=== PATIENT | female | born 1945 | race Caucasian/White ===

== ENCOUNTER → 2020-06-20 12:36 | Outpatient (CLI) | payer MEDICARE, OTHER, SELFPAY ==
--- NOTE | 2020-06-20 12:45 | ART_ITS ---
Reason For Study: PAD Procedure A bilateral lower extremity continuous wave Doppler with analog waveform analysis,segmental pressures,and ankle brachial indexes without exercise. Left Segmental Pressures Left brachial= 147mmHg. Left posterior tibial artery = 172mmHg. Left dorsalis pedis artery = 160mmHg. Left digit = 131 mmHg. The left dorsalis pedis waveforms are triphasic. The left posterior tibial artery waveforms are triphasic. Right Segmental Pressures Right brachial= 144mmHg. Right posterior tibial artery = 173mmHg. Right dorsalis pedis artery = 173mmHg. Right digit = 141 mmHg. The right dorsalis pedis waveforms are triphasic. The right posterior tibial artery waveforms are triphasic. Indices The right ankle brachial index by the dorsalis pedis is 1.18. The right ankle brachial index by the posterior tibial artery is 1.18. The right digital-brachial index is .96. The left ankle brachial index by the posterior tibial artery is 1.17. The left ankle brachial index by the dorsalis pedis is 1.09. The left digital-brachial index is .89. Interpretation Summary Triphasic Doppler waveforms are noted at ankle level bilaterally. Pulse-volume recordings appear satisfactory at all levels bilaterally, including low-thigh, calf, ankle, and digital levels. Resting ankle-brachial indices are normal bilaterally. Digital-brachial indices are normal bilaterally. There is no evidence of significant arterial occlusive disease in the lower extremities bilaterally. Ordering Physician: Edy Hernandez Performed By: KEYON PETERS Indu
--- NOTE | 2020-06-20 12:45 | VDLE_ITS ---
Reason For Study: chronic venous insufficicnecy RIGHT LEFT CFV is compressible, spontaneous, phasic, CFV is compressible, spontaneous, phasic, competent and demonstrates normal competent, and demonstrates normal augmentation. augmentation. FV is compressible, spontaneous, phasic, FV is compressible, spontaneous, phasic, competent and demonstrates normal competent and demonstrates normal augmentation. augmentation. POP V is compressible, spontaneous, phasic, POP V is compressible, spontaneous, phasic, competent and demonstrates normal competent and demonstrates normal augmentation. augmentation. T/P Trunk is compressible. T/P Trunk is compressible. PTV is compressible. PTV is compressible. RT PerV is compressible. LT PerV is compressible. SFJ is competent and measures .77 cm. SFJ is competent and measures .83 cm. GSV proximal thigh measures .44 x .47 cm. GSV proximal thigh measures .55 x .61 cm. GSV at knee measures .32 x .31 cm. GSV at knee measures .17 x .24 cm. GSV INCOMPETENT throughout for greater than GSV above knee is competent. 0.5 seconds. GSV below knee is INCOMPETENT for greater SSV proximal calf is competent and than 0.5 seconds. measures .18 x .21 cm. SSV proximal calf is competent and Procedure measures .14 x .16 cm. This is a venous duplex using B-mode, color flow and spectral Doppler. Exam performed in department. The exam was diagnostic. Interpretation Summary Deep veins of the lower extremities are bilaterally patent and compressible segmentally. There is no evidence of deep vein thrombosis on either side. Valvular competence appears intact within the proximal deep venous systems bilaterally. The great saphenous veins appear bilaterally patent and compressible segmentally. Sapheno-femoral junctions are bilaterally competent . The right great saphenous vein appears segmentally incompetent. The left great saphenous vein appears competent above the knee. The left great saphenous vein appears incompetent below the knee. Small saphenous veins are patent and competent bilaterally. Ordering Physician: Edy Hernandez Performed By: Ravi Manuel RVT
== END ==
PROVIDERS: PCP Internal Medicine; Referring Provider Surgery; Visit Provider Surgery
DX: I73.9 Peripheral vascular disease, unspecified (principal); M79.89 Other specified soft tissue disorders; I83.10 Varicose veins of unspecified lower extremity with inflammation; Z86.72 Personal history of thrombophlebitis
CPT/HCPCS: 93923; 93970